=== PATIENT | male | born 1985 | race African-American/Black ===

== ENCOUNTER 2016-09-25 22:18 | Emergency (ER) | payer SELFPAY ==
[~2016-09-25] VITALS: Ht 177.8 cm; Wt 83.9 kg
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
[2016-09-25 22:28] VITALS: BP 121/86
--- NOTE | 2016-09-25 22:36 | NUR ---
Dr. Laughlin evaluating patient at triage
--- NOTE | 2016-09-25 22:46 | NUR ---
PT TAKEN TO BED 7
--- NOTE | 2016-09-25 22:49 | NUR ---
[place] [employer] AT BEDSIDE
--- NOTE | 2016-09-25 22:49 | NUR ---
PT MOVED TO BED 6
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
[2016-09-25] MEDS ORDERED: LIDOCAINE 1% ED 50 ML ONE (22:53)
[2016-09-25] MEDS ORDERED: BACITRACIN OINT 500 UNITS/GM PKT TP ONE ×2 (22:54→23:05)
[2016-09-25] MEDS ORDERED: LIDOCAINE 1% 500 MG/50 ML VIAL INJ ONE (23:05)
--- NOTE | 2016-09-25 23:39 | NUR ---
PT TAKEN TO CT
--- NOTE | 2016-09-26 00:39 | NUR ---
PT LEFT WITHOUT BEING DISCHARGE BY ER MD. DR RAYMUNDO NOTIFIED.
== END 2016-09-26 00:39 | disposition left against medical advice (07) ==
LOC: MED 22:18
DX: S51.811A Laceration without foreign body of right forearm, initial encounter (principal); F17.210 Nicotine dependence, cigarettes, uncomplicated; W26.0XXA Contact with knife, initial encounter; Y93.84 Activity, sleeping; Y92.89 Other specified places as the place of occurrence of the external cause; Y99.8 Other external cause status
CPT/HCPCS: 12002; 73200; 99284; J2001